=== PATIENT | female | born 1990 | race Caucasian/White ===

== ENCOUNTER 2021-12-18 13:00 | Emergency (ER) | payer OTHER ==
[~2021-12-18] VITALS: Ht 160 cm; Wt 102.1 kg
[2021-12-18 13:15] VITALS: BP 124/83
--- NOTE | 2021-12-18 13:20 | NUR ---
PT SENT TO LOBBY
[2021-12-18] MEDS ORDERED: KETOROLAC 30 MG/ML VIAL IM ONE (13:30)
--- NOTE | 2021-12-18 14:21 | NUR ---
31/F BIB SELF STATES ON MONDAY SHE ATTEMPTED TO HEEL PADDER A HEAVY BOX AT WORK AND STATES SHE WAS UNABLE TO LIFT THE BOX AND DROPPED IT. STATING SHE FELL BACKWARDS. PATIENT IS C/O BACK, NECK, LEFT ARM AND LEFT SHOULDER PAIN. REPORTS 9/10 CONSTANT PAIN THAT WORSENS WITH MOVEMENT, PATIENT AMBULATORY UPON ARRIVAL TO ED, DENIES TAKING ANYTHING FOR PAIN.
[2021-12-18] MEDS ORDERED: NAPR-54 PO (15:53)
[2021-12-18] MEDS ORDERED: CYCL-711 PO (15:53)
--- NOTE | 2021-12-18 17:28 | NUR ---
Patient discharged with v/s stable. Written and verbal after care instructions ABOUT SHOULDER PAIN, CONTUSION, AND MUSCLE STRAIN given and explained. Patient alert, oriented and verbalized understanding of instructions. Ambulatory with steady gait. All questions addressed prior to discharge. ID band removed. Patient advised to follow up with PMD. Rx of FLEXERIL AND NAPROXEN given. Patient educated on indication of medication including possible reaction and side effects. Opportunity to ask questions provided and answered. PT DISCHARGED BY [facility]
== END 2021-12-18 17:28 | disposition home or self-care (01) ==
LOC: MED 13:00 → EDBD 13:00 → MED 17:28
DX: M54.50 Low back pain, unspecified (principal); M25.512 Pain in left shoulder; R07.81 Pleurodynia; J45.909 Unspecified asthma, uncomplicated; Z79.899 Other long term (current) drug therapy; Z98.890 Other specified postprocedural states; W19.XXXA Unspecified fall, initial encounter; Y93.89 Activity, other specified; Y92.89 Other specified places as the place of occurrence of the external cause; Y99.8 Other external cause status
CPT/HCPCS: 71111; 72072; 73030; 81025; 96372; 99284; J1885